=== PATIENT | male | born 2005 | race Caucasian/White ===

== ENCOUNTER 2023-05-25 10:53 | Inpatient (IN) ==
[2023-05-25] MEDS ORDERED: SODIUM CHLORIDE 0.9% 1000ML 1,000 ML IV STA (11:30)
[2023-05-25] MEDS ORDERED: IBUPROFEN 600 MG TAB PO STA (11:30)
--- NOTE | 2023-05-25 11:35 | Emergency Department Note ---
ED Provider Note History of Present Illness Chief Complaint: Flu Like Symptoms Stated Complaint: FEVER, HEADACHE, BODY ACHES - POSSIBLE COVID Time Seen by Provider: 05/25/23 11:10 Source: patient Mode of arrival: ambulatory Limitations: no limitations This patient is a 17-year-old male who presents to the emergency department for evaluation of a febrile illness which started 5 days ago. Patient reports that throughout the week, he has had intermittent high fevers up to 104 F, chills and fatigue. He has had days where he starts to feel better, but then symptoms returned. He is normally very active but has had to stay home and rest for several days due to his illness. He has had some intermittent headaches as well as some chest tightness 2 days ago, both of which have now resolved. He has had some minimal body aches. He denies any associated nausea/vomiting, abdominal pain, chest pain, shortness of breath, cough, sore throat, neck pain or stiffnes s. 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 He denies any recent known tick bites. He states that they were on vacation with his uncle last week who had a cold, but otherwise no sick contacts. He has been taking Tylenol and ibuprofen as well as taking cool showers for his fevers. Home Medications Medication Instructions Recorded Confirmed Type No Known Home Medications 05/25/23 05/25/23 History Allergies Allergy/AdvReac Type Severity Reaction Status Date / Time [id number] AdvReac Unknown Uncoded 06/17/04 10:52 Past Med/Surg History Medical History No significant past medical history Surgical History No significant past surgical history Social History Smoking Status: Never smoker Hx Alcohol Use: No Hx Substance Use: No Preferred Language: Sierra Leonean Communication Ability: Effective Lactation Nurse Required: No Beliefs That Will Affect Care: None Current Living Situation: Parent Feels Safe at Home: Yes Safety Concerns: Feels Safe At This Time Physical Exam Vital Signs Vital Signs - 24 hr 05/25/23 11:02 05/25/23 12:26 05/25/23 12:37 Temperature 38.2 C H 37.0 C Temperature Source Oral Oral Pulse Rate 115 H 85 Pulse Rate [Left Finger] 86 Respiratory Rate 16 18 Respiratory Effort / Characteristics Non-Labored Spontaneous Respiratory Depth Normal Respiratory Pattern Regular Blood Pressure [Left Arm] 109/68 Blood Pressure Mean [Left Arm] 81 Pulse Oximetry 97 98 Oxygen Delivery Method Room Air Room Air Sepsis Recent Fever Within 48 Hours Yes Sepsis New/Unexplained Change in Mental Status No Sepsis Action Taken by Nursing No Action Required 05/25/23 13:59 Temperature Temperature Source Pulse Rate Pulse Rate [Left Finger] 76 Respiratory Rate 21 Respiratory Effort / Characteristics Respiratory Depth Respiratory Pattern Blood Pressure [Left Arm] 108/64 Blood Pressure Mean [Left Arm] 78 Pulse Oximetry 98 Oxygen Delivery Method Sepsis Recent Fever Within 48 Hours Sepsis New/Unexplained Change in Mental Status Sepsis Action Taken by Nursing VITALS: Vitals are noted on the nurse's note and reviewed by myself. GENERAL: This is a 17-year-old male, in no acute distress, well-developed well- nourished. SKIN: The skin was without rashes. EARS: External auditory canals clear, tympanic membranes pearly tovar without erythema or effusion bilaterally. EYES: Pupils equal round and reactive to light and accommodation. NOSE: Patent, turbinates without inflammation or discharge. No sinus tenderness. MOUTH: Mucous membranes moist. Tonsils are not enlarged. Pharynx without erythema or exudate. NECK: Supple without nuchal rigidity. No lymphadenopathy. Full range of motion of the neck. No meningeal irritation. HEART: Regular rate and rhythm without murmurs gallops or rubs. LUNGS: Clear to auscultation bilaterally without wheezes, rales or rhonchi. No retractions or accessory muscle use. ABDOMEN: Positive bowel sounds x 4. Soft, nontender to palpation. NEURO: Patient was alert and oriented to person place and time. Course Administered Medications Doxycycline Hyclate 100 mg/ (Dextrose) 110 mls @ 50 mls/hr IV Q12H FLOYD Stop: 06/04/23 17:59 Last Admin: 05/25/23 18:10 Dose: 50 mls/hr Documented By: JORDAAN Ibuprofen (Ibuprofen 200 Mg Tab) 400 mg PO TID PRN PRN Reason: Fever or headache Stop: 06/24/23 17:14 Last Admin: 05/25/23 17:47 Dose: 400 mg Documented By: JORDANA Discontinued Medications Sodium Chloride (Nss 1000ml) 1,000 mls @ 999 mls/hr IV .Q1H1M STA Stop: 05/25/23 12:30 Last Infusion: 05/25/23 12:50 Dose: 0 mls/hr Documented By: Admin: 05/25/23 11:46 Dose: 999 mls/hr Documented By: JOSEPH Ceftriaxone Sodium 1,000 mg/ (Dextrose) 50 mls @ 100 mls/hr IV NOW STA Stop: 05/25/23 14:10 Last Infusion: 05/25/23 14:32 Dose: 0 mls/hr Documented By: Admin: 05/25/23 13:59 Dose: 100 mls/hr Documented By: JOSEPH Ibuprofen (Ibuprofen 600 Mg Tab) 600 mg PO NOW STA Stop: 05/25/23 11:31 Last Admin: 05/25/23 11:55 Dose: 600 mg Documented By: JOSEPH Medical Decision Making Differential Diagnosis Tickborne illness, COVID-19, viral syndrome, otitis, pharyngitis, pneumonia, influenza, meningitis, urinary tract infection, sepsis, bacteremia, as well as other pathologies. Home Medications was personally reviewed by me Laboratory Data Attestation: I reviewed the patient's lab results. 05/25/23 10:40 05/25/23 10:40 Lab Results 05/25/23 05/25/23 05/25/23 Range/Units 10:40 10:40 10:40 WBC 8.26 (4.8-10.8) K/ul RBC 5.08 (4.70-6.10) M/uL Hgb 14.5 (14.0-18.0) g/dl Hct 41.1 L (42.0-52.0) % MCV 80.9 (80.0-100.0) fL MCH 28.5 (25.0-34.0) pg MCHC 35.3 (32.0-36.0) g/dL RDW Std Deviation 35.9 L (36.4-46.3) fL RDW Coeff of Colten 12.1 (11.5-14.5) % Plt Count 161 (130-400) K/uL MPV 9.7 (9.4-12.4) fL Immature Gran % (Auto) 0.4 % Neut % (Auto) 77.3 % Lymph % (Auto) 6.2 % Gregg % (Auto) 16.0 % Eos % (Auto) 0.0 % Baso % (Auto) 0.1 % Neut # (Auto) 6.39 (1.40-6.50) K/uL Lymph # (Auto) 0.51 L (1.2-3.4) K/uL Gregg # (Auto) 1.32 H (0.11-0.59) K/uL Eos # (Auto) 0.00 (0-0.50) K/uL Baso # (Auto) 0.01 (0-0.2) K/uL Immature Gran # (Auto) 0.03 (0.01-0.20) K/uL Sodium 133 L (136-145) mmol/L Potassium 4.0 (3.5-5.1) mmol/L Chloride 102 (98-107) mmol/L Carbon Dioxide 24 (21-32) mmol/L Anion Gap 7 (3-11) BUN 13 (6-23) mg/dl Creatinine 1.11 (0.6-1.4) mg/dl Est Cr Clr Drug Dosing 116.6 ml/min Est GFR ( Amer) 111.0 ml/min Est GFR (Non-Af Amer) 95.8 ml/min BUN/Creatinine Ratio 11.7 (10-20) Glucose 112 H (70-99(Fasting)) mg/dl Calcium 9.2 (8.6-10.3) mg/dl Total Bilirubin 0.4 (0.2-1.0) mg/dl AST 16 (13-39) U/L ALT 27 (7-52) U/L Alkaline Phosphatase 74 (34-104) U/L Troponin I High Sens 41.0 H (0-20) pg/ml Total Protein 7.2 (6.0-8.3) gm/dl Albumin 4.3 (3.4-5.0) gm/dl Globulin 2.9 (2.5-4.0) gm/dl Albumin/Globulin Ratio 1.5 (0.9-2) Procalcitonin (0-0.5) ng/ml Urine Color Urine Appearance (Clear) Urine pH (4.5-7.5) Ur Specific Chama (1.000-1.030) Urine Protein (Negative) Urine Glucose (UA) (Negative) Urine Ketones (Negative) Urine Blood (Negative) Urine Nitrite (Negative) Urine Bilirubin (Negative) Urine Urobilinogen (Negative) Ur Leukocyte Esterase (Negative) Adenovirus (PCR) (NotDetected) Anaplasma Smear See Comment B. pertussis DNA (PCR) (NotDetected) B.parapertussis DNA PCR (NotDetected) Lyme Disease IgG Ab Positive A (Negative) Lyme Disease IgM Ab Negative (Negative) C. pneumoniae DNA (PCR) (NotDetected) Coronavirus OC43 (PCR) (NotDetected) Coronavirus HKU1 (PCR) (NotDetected) Coronavirus 229E (PCR) (NotDetected) SARS-CoV-2 (PCR) (NotDetected) Coronavirus NL63 (PCR) (NotDetected) Monoscreen (Negative) Human Metapneumovir PCR (NotDetected) Influenza Type A (PCR) (NotDetected) Influenza Type B (PCR) (NotDetected) M. pneumoniae (PCR) (NotDetected) Parainfluenza 1 (PCR) (NotDetected) Parainfluenza 2 (PCR) (NotDetected) Parainfluenza 3 (PCR) (NotDetected) Parainfluenza 4 (PCR) (NotDetected) RSV (PCR) (NotDetected) Entero/Rhino (PCR) (NotDetected) 05/25/23 05/25/23 05/25/23 Range/Units 10:40 10:40 10:52 WBC (4.8-10.8) K/ul RBC (4.70-6.10) M/uL Hgb (14.0-18.0) g/dl Hct (42.0-52.0) % MCV (80.0-100.0) fL MCH (25.0-34.0) pg MCHC (32.0-36.0) g/dL RDW Std Deviation (36.4-46.3) fL RDW Coeff of Colten (11.5-14.5) % Plt Count (130-400) K/uL MPV (9.4-12.4) fL Immature Gran % (Auto) % Neut % (Auto) % Lymph % (Auto) % Gregg % (Auto) % Eos % (Auto) % Baso % (Auto) % Neut # (Auto) (1.40-6.50) K/uL Lymph # (Auto) (1.2-3.4) K/uL Gregg # (Auto) (0.11-0.59) K/uL Eos # (Auto) (0-0.50) K/uL Baso # (Auto) (0-0.2) K/uL Immature Gran # (Auto) (0.01-0.20) K/uL Sodium (136-145) mmol/L Potassium (3.5-5.1) mmol/L Chloride (98-107) mmol/L Carbon Dioxide (21-32) mmol/L Anion Gap (3-11) BUN (6-23) mg/dl Creatinine (0.6-1.4) mg/dl Est Cr Clr Drug Dosing ml/min Est GFR ( Amer) ml/min Est GFR (Non-Af Amer) ml/min BUN/Creatinine Ratio (10-20) Glucose (70-99(Fasting)) mg/dl Calcium (8.6-10.3) mg/dl Total Bilirubin (0.2-1.0) mg/dl AST (13-39) U/L ALT (7-52) U/L Alkaline Phosphatase (34-104) U/L Troponin I High Sens (0-20) pg/ml Total Protein (6.0-8.3) gm/dl Albumin (3.4-5.0) gm/dl Globulin (2.5-4.0) gm/dl Albumin/Globulin Ratio (0.9-2) Procalcitonin 0.22 (0-0.5) ng/ml Urine Color Urine Appearance (Clear) Urine pH (4.5-7.5) Ur Specific Chama (1.000-1.030) Urine Protein (Negative) Urine Glucose (UA) (Negative) Urine Ketones (Negative) Urine Blood (Negative) Urine Nitrite (Negative) Urine Bilirubin (Negative) Urine Urobilinogen (Negative) Ur Leukocyte Esterase (Negative) Adenovirus (PCR) Not Detected (NotDetected) Anaplasma Smear B. pertussis DNA (PCR) Not Detected (NotDetected) B.parapertussis DNA PCR Not Detected (NotDetected) Lyme Disease IgG Ab (Negative) Lyme Disease IgM Ab (Negative) C. pneumoniae DNA (PCR) Not Detected (NotDetected) Coronavirus OC43 (PCR) Not Detected (NotDetected) Coronavirus HKU1 (PCR) Not Detected (NotDetected) Coronavirus 229E (PCR) Not Detected (NotDetected) SARS-CoV-2 (PCR) Not Detected (NotDetected) Coronavirus NL63 (PCR) Not Detected (NotDetected) Monoscreen Negative (Negative) Human Metapneumovir PCR Not Detected (NotDetected) Influenza Type A (PCR) Not Detected (NotDetected) Influenza Type B (PCR) Not Detected (NotDetected) M. pneumoniae (PCR) Not Detected (NotDetected) Parainfluenza 1 (PCR) Not Detected (NotDetected) Parainfluenza 2 (PCR) Not Detected (NotDetected) Parainfluenza 3 (PCR) Not Detected (NotDetected) Parainfluenza 4 (PCR) Not Detected (NotDetected) RSV (PCR) Not Detected (NotDetected) Entero/Rhino (PCR) Not Detected (NotDetected) 05/25/23 Range/Units 13:47 WBC (4.8-10.8) K/ul RBC (4.70-6.10) M/uL Hgb (14.0-18.0) g/dl Hct (42.0-52.0) % MCV (80.0-100.0) fL MCH (25.0-34.0) pg MCHC (32.0-36.0) g/dL RDW Std Deviation (36.4-46.3) fL RDW Coeff of Colten (11.5-14.5) % Plt Count (130-400) K/uL MPV (9.4-12.4) fL Immature Gran % (Auto) % Neut % (Auto) % Lymph % (Auto) % Gregg % (Auto) % Eos % (Auto) % Baso % (Auto) % Neut # (Auto) (1.40-6.50) K/uL Lymph # (Auto) (1.2-3.4) K/uL Gregg # (Auto) (0.11-0.59) K/uL Eos # (Auto) (0-0.50) K/uL Baso # (Auto) (0-0.2) K/uL Immature Gran # (Auto) (0.01-0.20) K/uL Sodium (136-145) mmol/L Potassium (3.5-5.1) mmol/L Chloride (98-107) mmol/L Carbon Dioxide (21-32) mmol/L Anion Gap (3-11) BUN (6-23) mg/dl Creatinine (0.6-1.4) mg/dl Est Cr Clr Drug Dosing ml/min Est GFR ( Amer) ml/min Est GFR (Non-Af Amer) ml/min BUN/Creatinine Ratio (10-20) Glucose (70-99(Fasting)) mg/dl Calcium (8.6-10.3) mg/dl Total Bilirubin (0.2-1.0) mg/dl AST (13-39) U/L ALT (7-52) U/L Alkaline Phosphatase (34-104) U/L Troponin I High Sens (0-20) pg/ml Total Protein (6.0-8.3) gm/dl Albumin (3.4-5.0) gm/dl Globulin (2.5-4.0) gm/dl Albumin/Globulin Ratio (0.9-2) Procalcitonin (0-0.5) ng/ml Urine Color Yellow Urine Appearance Clear (Clear) Urine pH 7.5 (4.5-7.5) Ur Specific Chama 1.010 (1.000-1.030) Urine Protein Negative (Negative) Urine Glucose (UA) Negative (Negative) Urine Ketones Negative (Negative) Urine Blood Negative (Negative) Urine Nitrite Negative (Negative) Urine Bilirubin Negative (Negative) Urine Urobilinogen Negative (Negative) Ur Leukocyte Esterase Negative (Negative) Adenovirus (PCR) (NotDetected) Anaplasma Smear B. pertussis DNA (PCR) (NotDetected) B.parapertussis DNA PCR (NotDetected) Lyme Disease IgG Ab (Negative) Lyme Disease IgM Ab (Negative) C. pneumoniae DNA (PCR) (NotDetected) Coronavirus OC43 (PCR) (NotDetected) Coronavirus HKU1 (PCR) (NotDetected) Coronavirus 229E (PCR) (NotDetected) SARS-CoV-2 (PCR) (NotDetected) Coronavirus NL63 (PCR) (NotDetected) Monoscreen (Negative) Human Metapneumovir PCR (NotDetected) Influenza Type A (PCR) (NotDetected) Influenza Type B (PCR) (NotDetected) M. pneumoniae (PCR) (NotDetected) Parainfluenza 1 (PCR) (NotDetected) Parainfluenza 2 (PCR) (NotDetected) Parainfluenza 3 (PCR) (NotDetected) Parainfluenza 4 (PCR) (NotDetected) RSV (PCR) (NotDetected) Entero/Rhino (PCR) (NotDetected) Imaging Data Attestation: I personally reviewed and interpreted this imaging study as follows: Radiologist's Impression: Chest X-Ray 05/25/23 11:30 XR chest 1V portable HISTORY: 17 years-old Male Fever acute fever COMPARISON: 04/14/2013 TECHNIQUE: AP view of the chest FINDINGS: Cardiomediastinal and hilar silhouettes are within normal limits. No pneumoth orax, pleural effusion, airspace consolidation or pulmonary edema. Bones appear grossly intact. IMPRESSION: Normal exam. ACT 112: Negative or not required by law. The above report was generated using voice recognition software. It may contain grammatical, syntax or spelling errors. Electronically signed by: Javier Jensen M.D. 05/25/2023 12:10 PM ECG Data Attestation: I personally reviewed and interpreted this ECG as follows: Indication: + chest pain Rate (beats per minute): 94 Rhythm: + normal sinus ECG Intervals/blocks: + Normal QRS ECG [place]: + Right axis deviation ECG ST segments: + Nonspecific ST abnormalities Comparison ECG Date: no prior available MDM Narrative Continuous compliance monitor: Order was placed for continuous compliance monitor. Patient was placed on the compliance monitor. Patient was noted to be in sinus tachycardia at an initial rate of 110 bpm. The patient is a 17-year-old male who presents today complaining of intermittent fevers and chills over the past week. Patient has also had some chest tightness over the past few days. Labs revealed no leukocytosis or thrombocytopenia. There were no concerning electrolyte abnormalities. LFTs within normal limits. Urinalysis was not suggestive of infection. [facility] respiratory panel was found to be negative. Anaplasmosis and babesiosis smears were negative. Patient's Lyme IgG testing was found to be positive. His troponin was elevated at 41. EKG shows some nonspecific ST changes without evidence of ischemia or heart block. Given the elevated troponin there is concern for Lyme carditis. Patient was treated with IV Rocephin, fluids and ibuprofen. [facility] the patient for further care. Impression Lyme disease, Elevated troponin Discharge Plan Visit Data Chief Complaint: Flu Like Symptoms Stated Complaint: FEVER, HEADACHE, BODY ACHES - POSSIBLE COVID ED Provider: Shoaib Meyer ED Midlevel Provider: Alena Noonan Discharge Problem: Lyme disease, Elevated troponin Patient Disposition: Admitted As Inpatient Discharge Instructions Interventions: ED Discharge Assessment Last Done: 05/25/23 16:47
[2023-05-25 12:06] LABS: Basophils # (auto) 0.01 K/uL (0-0.2); Basophils % (auto) 0.1 %; Hematocrit (blood only) 41.1 % (42.0-52.0); Hemoglobin 14.5 g/dl (14.0-18.0); Immature Granulocytes # (auto) 0.03 K/uL (0.01-0.20); Immature Granulocytes % (auto) 0.4 %; Lymphocytes # (auto) 0.51 K/uL (1.2-3.4); Lymphocytes % (auto) 6.2 %; Mean Corpuscular Hemoglobin 28.5 pg (25.0-34.0); Mean Corpuscular Hgb Conc 35.3 g/dL (32.0-36.0); Mean Corpuscular Volume 80.9 fL (80.0-100.0); Mean Platelet Volume 9.7 fL (9.4-12.4); Monocytes # (auto) 1.32 K/uL (0.11-0.59); Neutrophils # (auto) 6.39 K/uL (1.40-6.50); Neutrophils % (auto) 77.3 %; Platelet Count 161 K/uL (130-400); RDW Coefficient of Variation 12.1 % (11.5-14.5); RDW Standard Deviation 35.9 fL (36.4-46.3); Red Blood Count 5.08 M/uL (4.70-6.10); White Blood Count 8.26 K/ul (4.8-10.8)
--- NOTE | 2023-05-25 12:11 | XRay Report ---
XR chest 1V portable HISTORY: 17 years-old Male Fever acute fever COMPARISON: 04/14/2013 TECHNIQUE: AP view of the chest FINDINGS: Cardiomediastinal and hilar silhouettes are within normal limits. No pneumothorax, pleural effusion, airspace consolidation or pulmonary edema. Bones appear grossly intact. IMPRESSION: Normal exam. ACT 112: Negative or not required by law. The above report was generated using voice recognition software. It may contain grammatical, syntax o r spelling errors. Electronically signed by: Javier Jensen M.D. 05/25/2023 12:10 PM
[2023-05-25 12:24] LABS: Albumin Globulin Ratio 1.5 (0.9-2); Albumin Level 4.3 gm/dl (3.4-5.0); BUN Creatinine Ratio 11.7 (10-20); Bilirubin,Total 0.4 mg/dl (0.2-1.0); Calcium 9.2 mg/dl (8.6-10.3); Creatinine Clr Calc Pharmacy 116.6 ml/min; Est GFR (Non-African American) 95.8 ml/min; Globulin 2.9 gm/dl (2.5-4.0); Total Protein 7.2 gm/dl (6.0-8.3)
[2023-05-25 12:59] LABS: Lyme Ab IgM w/WB Rflx Negative (Negative)
[2023-05-25 13:02] LABS: Adenovirus PCR Not Detected (NotDetected); Bordetella parapertussis PCR Not Detected (NotDetected); Bordetella pertussis PCR Not Detected (NotDetected); Chlamydia pneumoniae PCR Not Detected (NotDetected); Coronavirus 229E PCR Not Detected (NotDetected); Coronavirus CoV-2 (COVID19)PCR Not Detected (NotDetected); Coronavirus HKU1 PCR Not Detected (NotDetected); Coronavirus NL63 PCR Not Detected (NotDetected); Coronavirus OC43PCR Not Detected (NotDetected); Human Metapneumovirus PCR Not Detected (NotDetected); Influenza A PCR Not Detected (NotDetected); Influenza B PCR Not Detected (NotDetected); Mycoplasma pneumoniae PCR Not Detected (NotDetected); Parainfluenza Virus 1 PCR Not Detected (NotDetected); Parainfluenza Virus 2 PCR Not Detected (NotDetected); Parainfluenza Virus 3 PCR Not Detected (NotDetected); Parainfluenza Virus 4 PCR Not Detected (NotDetected); Respiratory Syncytial VirusPCR Not Detected (NotDetected); Rhinovirus/Enterovirus PCR Not Detected (NotDetected)
[2023-05-25 13:28] LABS: Lyme Ab IgG w/WB Rflx Positive (Negative)
[2023-05-25] MEDS ORDERED: cefTRIAXone SODIUM 1,000 MG in DEXTROSE 5% AD-VAN 50 ML IV STA (13:41)
[2023-05-25 14:04] LABS: Appearance Urine Clear (Clear); Bilirubin Urine Negative (Negative); Blood Urine Negative (Negative); Color Urine Yellow; Glucose Urine UA Negative (Negative); Ketones Urine Negative (Negative); Leukocyte Esterase Urine Negative (Negative); Nitrite Urine Negative (Negative); Protein Urine Negative (Negative); Urobilinogen Urine Negative (Negative); pH Urine 7.5 (4.5-7.5)
--- NOTE | 2023-05-25 14:51 | History & Physical Report ---
Date of Service May 25, 2023 Assessment & Plan (1) Lyme carditis: Plan: Lyme disease,? Lyme carditis AL 152, QTc 417, normal sinus rhythm, nonspecific ST wave change Patient with chest pain [employer] which is resolved at time of bedside evaluation High sensitive troponin 41 Troponin trended, Echo pending AL is not prolonged greater than 300 ms, will transition from Rocephin to doxycycline 100 mg twice daily treatment Pro-Mason is normal No leukocytosis No history of hocum, sudden cardiac . FHX of [place] in fathers side of family in 40s/50s Systolic Murmur - New to pt - ?flow murmur - Echo pending as above DVT PPx: SCDs Diet: Regular CODE: FUll Dispo: Med Tele for chest pain History of Present Illness Primary Care Provider: Vasu Fowler DO Gilberto is a 17-year-old male who presented with fever of 5 days of up to 104, chills, body aches, and fatigue. Symptoms initially improved slightly and then worsened. He has had associated chest tightness without shortness of breath/diaphoresis. He takes no home medications and has no known medication allergies. On ER evaluation he does not have leukocytosis but is found to be IgG positive. He has never been treated for Lyme disease before, does work on golf courses. High-sensitivity troponin is elevated at 41, EKG does not show evidence of heart block. Due to his troponin elevation, chest pain, and suspected potential cardiac Lyme patient was recommended for inpatient observation, echo and troponin trend. Anaplasma testing pending. AL is not prolonged greater than 300 ms. Will defer additional Rocephin and start on doxycycline twice daily. Gilberto seen in the ER with his mom. 'On and off feel like crap all week intermittently.' No rashes. +fevers, +chills. 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 No bullseye rash. Chest pain occured morning, chest was tight. Went to bed and woke up and chest tightness was gone after waking up. No CP since that time. [place] like he had to breath more, maybe a little shortness of breath at the time.NO other medical hx, no chronic medications. Uses ibuprofen/APAP every 4 hours in the last week. No other OTC meds. No leg swelling. No joint swelling. No joint pain on admit. No muscle aches at admit, but had these earlier in the week +headache. No numbness, tingling. No weakness. PGM NH at age 50s. Uncle age 40 from NH. Father with NH in 50s. No history of SCD/ w/ sports. Medical History: Reviewed Medications: Reviewed Surgical History: Reviewed Family history: Reviewed Allergies: Reviewed Social History: No tobacco use, no etoh use, no vaping. Code Status: Full Allergies Allergy/AdvReac Type Severity Reaction Status Date / Time [id number] AdvReac Unknown Uncoded 06/17/04 10:52 Home Medications Medication Instructions Recorded Confirmed Type No Known Home Medications 05/25/23 05/25/23 History Past Med/Surg History Medical History No significant past medical history Surgical History No significant past surgical history Social History Smoking Status: Never smoker Feels Safe at Home: Yes Review of Systems Review of Systems: All systems reviewed & are unremarkable except as noted in HPI & below Physical Exam Physical Exam: General: A&Ox3. NAD. Cooperative. HEENT: Atraumatic, normocephalic. TIMOTHY. Vision/hearing. Pulm: CTAB A&P. -wheezes, -rales, -rhonchi. Symmetrical chest rise. No increased work of breathing. No respiratory distress. Cardiac: RRR, +sm. Radial pulses intact and symmetrical. Abdominal: Nontender, nondistended, soft. BS present. Ext: Warm, dry. Moves all extremities equally. Sensation to soft touch intact in arms and legs without asymmetry, Results & Data Results & Data Vital Signs (Past 12 Hours) Vital Signs Temp Pulse Pulse Resp BP Pulse Ox O2 Del Method 05/25/23 13:59 76 21 108/64 98 05/25/23 12:37 85 05/25/23 12:26 37.0 C 86 18 109/68 98 Room Air 05/25/23 11:02 38.2 C H 115 H 16 97 Room Air PG Care Time/CCT Total # of Minutes Spent Total Time Spent with Patient: Total time spent is greater than 50% in coordination of care (as documented) at patient's floor/unit and/or counseling patient: Coding Level of Care Code 56017 INT INP/OBS CARE Diagnoses Lyme carditis A69.29
[2023-05-25] MEDS ORDERED: ACETAMINOPHEN 325 MG TAB PO PRN (17:01)
[2023-05-25] MEDS ORDERED: IBUPROFEN 200 MG TAB PO PRN (17:15)
[2023-05-25] MEDS: DOXYCYCLINE HYCLATE 100 MG in DEXTROSE 5% 100 ML IV SCH (18:10)
[2023-05-25] MEDS ORDERED: MELATONIN 3 MG TAB PO PRN (18:16)
[2023-05-26] MEDS: DOXYCYCLINE HYCLATE 100 MG in DEXTROSE 5% 100 ML IV SCH (05:40)
--- NOTE | 2023-05-26 06:47 | Hospitalist Progress Note ---
Date of Service May 26, 2023 Assessment & Plan (1) Lyme carditis: Plan: Lyme disease,? Lyme carditis MI 152, QTc 417, normal sinus rhythm, nonspecific ST wave change Patient with chest pain [employer] which is resolved at time of bedside evaluation High sensitive troponin 41 Troponin trended, Echo pending MI is not prolonged greater than 300 ms, will transition from Rocephin to doxycycline 100 mg twice daily treatment Pro-Mason is normal No leukocytosis No history of hocum, sudden cardiac . FHX of [place] in fathers side of family in 40s/50s Systolic Murmur - New to pt - ?flow murmur - Echo pending as above DVT PPx: SCDs Diet: Regular CODE: FUll Dispo: Med MovieLine for chest pain Admission and Anticipated Discharge Date Admission Date: May 25, 2023 Results & Data Results & Data Vital Signs (Past 12 Hours) Vital Signs Temp Pulse Pulse Resp BP Pulse Ox O2 Del Method 05/26/23 02:55 36.8 C 70 18 116/73 100 Room Air 05/26/23 00:35 59 L 05/25/23 23:22 36.9 C 69 20 112/73 97 Room Air 05/25/23 20:37 37.5 C 05/25/23 20:03 39.1 C H 105 H 18 121/76 97 Room Air
--- NOTE | 2023-05-26 06:58 | Electrocardiogram Report ---
Test Reason : Blood Pressure : / mmHG Vent. Rate : 094 BPM Atrial Rate : 094 BPM P-R Int : 152 ms QRS Dur : 094 ms QT Int : 334 ms P-R-T Axes : 061 092 026 degrees QTc Int : 417 ms Normal sinus rhythm Rightward axis Nonspecific T wave abnormality Abnormal ECG No previous ECGs available Confirmed by Kwesi Hernandez ([id number]) on 05/26/2023 6:58:20 AM Referred By: Confirmed By:Jefferson Hernandez
[2023-05-26 07:10] LABS: Basophils # (auto) 0.02 K/uL (0-0.2); Basophils % (auto) 0.2 %; Eosinophils # (auto) 0.01 K/uL (0-0.50); Eosinophils % (auto) 0.1 %; Hematocrit (blood only) 40.6 % (42.0-52.0); Hemoglobin 14.1 g/dl (14.0-18.0); Immature Granulocytes # (auto) 0.03 K/uL (0.01-0.20); Immature Granulocytes % (auto) 0.3 %; Lymphocytes # (auto) 1.23 K/uL (1.2-3.4); Lymphocytes % (auto) 12.5 %; Mean Corpuscular Hemoglobin 28.3 pg (25.0-34.0); Mean Corpuscular Hgb Conc 34.7 g/dL (32.0-36.0); Mean Corpuscular Volume 81.5 fL (80.0-100.0); Mean Platelet Volume 9.4 fL (9.4-12.4); Monocytes # (auto) 1.83 K/uL (0.11-0.59); Monocytes % (auto) 18.6 %; Neutrophils # (auto) 6.72 K/uL (1.40-6.50); Neutrophils % (auto) 68.3 %; Platelet Count 170 K/uL (130-400); RDW Coefficient of Variation 12.5 % (11.5-14.5); RDW Standard Deviation 37.2 fL (36.4-46.3); Red Blood Count 4.98 M/uL (4.70-6.10); White Blood Count 9.84 K/ul (4.8-10.8)
[2023-05-26 07:29] LABS: BUN Creatinine Ratio 12.6 (10-20); Calcium 8.7 mg/dl (8.6-10.3); Est GFR (African American) 121.5 ml/min; Est GFR (Non-African American) 104.8 ml/min; Potassium 4.5 mmol/L (3.5-5.1)
[2023-05-26 07:37] LABS: Troponin I High Sensitivity 22.8 pg/ml (0-20)
--- NOTE | 2023-05-26 10:22 | XCELERA ---
[id number] \\[id number]
--- NOTE | 2023-05-26 12:41 | Discharge Summary ---
Date of Service May 26, 2023 Admission HPI Per Admitting Provider Gilberto is a 17-year-old male who presented with fever of 5 days of up to 104, chills, body aches, and fatigue. Symptoms initially improved slightly and then worsened. He has had associated chest tightness without shortness of breath/diaphoresis. He takes no home medications and has no known medication allergies. On ER evaluation he does not have leukocytosis but is found to be IgG positive. He has never been treated for Lyme disease before, does work on golf courses. High-sensitivity troponin is elevated at 41, EKG does not show evidence of heart block. Due to his troponin elevation, chest pain, and suspected potential cardiac Lyme patient was recommended for inpatient observation, echo and troponin trend. Anaplasma testing pending. NY is not prolonged greater than 300 ms. Will defer additional Rocephin and start on doxycycline twice daily. Gilberto seen in the ER with his mom. 'On and off feel like crap all week intermittently.' No rashes. +fevers, +chills. 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 No bullseye rash. Chest pain occured morning, chest was tight. Went to bed and woke up and chest tightness was gone after waking up. No CP since that time. [place] like he had to breath more, maybe a little shortness of breath at the time.NO other medical hx, no chronic medications. Uses ibuprofen/APAP every 4 hours in the last week. No other OTC meds. No leg swelling. No joint swelling. No joint pain on admit. No muscle aches at admit, but had these earlier in the week +headache. No numbness, tingling. No weakness. PGM CT at age 50s. Uncle age [address] Father with CT in 50s. No history of SCD/ w/ sports. Medical History: Reviewed Medications: Reviewed Surgical History: Reviewed Family history: Reviewed Allergies: Reviewed Social History: No tobacco use, no etoh use, no vaping. Code Status: Full Principal Diagnosis Lyme Carditis Discharge Exam Constitutional: well-appearing, no acute distress HEENT: NCAT, no conjunctival injection CV: regular rhythm, no murmur appreciated, extremities well-perfused, no LE edema Resp: CTABL, no wheezes/rales/rhonchi appreciated, no increased work of breathing MSK: no gross deformities appreciated Skin: warm, dry, no rash appreciated Neuro: alert, oriented, no focal neurologic deficit appreciated Discharge Data Allergies Allergy/AdvReac Type Severity Reaction Status Date / Time [id number] AdvReac Unknown Uncoded 06/17/04 10:52 Consultations 05/25/23 15:48 ED Decision to Admit Stat Hospital Course (1) Lyme disease: Lyme disease, Lyme carditis NY 152, QTc 417, normal sinus rhythm, nonspecific ST wave change Patient with chest pain [employer] which is resolved at time of bedside evaluation High sensitive troponin 41 Troponin trended, Echo normal [place] is not prolonged greater than 300 ms, s/p Rocephin in ED was transitioned to doxycycline 100 mg twice daily treatment Pro-[place] is normal No leukocytosis No history of hocum, sudden cardiac . FHX of CT in fathers side of family in 40s/50s - Plan to d/c with 21 day coarse of doxycycline - F/u tick borne studies Systolic Murmur - New to pt, noted on admission - TTE normal (2) Elevated troponin: (3) Lyme carditis: Total Time Total Time Spent Total Time Spent (In Minutes): <30 Discharge Plan Discharge Items Patient Disposition: Home - Self-Care Reason For Visit: ?LYME CARDITIS Discharge Diagnosis: Lyme Carditis Activity: Per Instructions section Non-emergency contact: Primary Care Provider Call non-emergency contact if: you have any medication questions and your symptoms worsen Follow-up/Referrals: Vasu Fowler, [Primary Care Provider] - (PLEASE CALL YOUR PRIMARY CARE PROVIDER TO SCHEDULE A DISCHARGE FOLLOW-UP APPOINTMENT WITHIN 7-10 DAYS.) Diet: Regular Addtl Attending Provider Instructions: We think that your symptoms were likely caused by lyme disease. We want you to continue to take doxycycline for a total of 21 days. You should take it twice a day. Doxycycline can make you sensitive to the sun. While you are taking it you should avoid the sun and wear sunscreen. We would like you to follow up with your primary care doctor in about a week. They should reach out to you to get an appointment scheduled. If you do not hear from their office in the next couple days please call to schedule an appointment. Pending Studies at Discharge: No Stand-Alone Forms: My [facility], Work/School Release Medications and DC Order Prescriptions: New doxycycline hyclate 100 mg capsule 100 mg PO BID 20 Days Qty: 40 0RF Discharge Orders: Discharge Order (Routine); Ordered 05/26/23 Ordered By: Ines Maravilla/Other Patient Handouts: Tick Bites, ED Lyme Disease Admission Data Admit Date/Time: 05/25/23 14:42 Attending Provider: Héctor Jacobson Admit Provider: Deric Soliman Primary Care Provider: Vasu Fowler Other Providers: Deric Soliman Other Interventions: Discharge Summary Assessment (RN) Last Done: 05/26/23 12:50 Supervising Physician Co-Signing Physician Notes I personally examined the patient and verified all quinn points of history and e xam, discussed case, and agree with decision making with Dr Nassar feeling better and would very much like to go home. No chest pain. Reviewed echocardiogram, looked at cardiac rehabilitation specialist no ectopy no arrhythmiasall sinus, even his sinus tachycardia was only about a max of 110 bpm. Vitals noted, in general he is awake and alert pleasant no distress. HEENT normocephalic atraumatic mucous membranes moist. Breathing unlabored no accessory muscle use good effort. Skin shows no rashes no pallor or icterus. Neuro without focal deficits. Echo, troponins, EKG, cardiac monitoring, labs all noted. Myocarditis appearing to be associated with Lymedoxycycline presumably for 21 daysalthough if he is doing well, possibly can treat for as little as 14. Discussed sun sensitivity and esophagitis risk. Discussed would refrain from any significant cardiovascular exertion until this has resolved. Outpatient follow-up with PCP in the next week or so. Safe/stable for home, otherwise as above. Resident Activity Tracking Resident Involvement: Resident Care Provided Care Provided: Adult Hospital Medicine
--- NOTE | 2023-05-26 14:16 | Billing Data ---
Date of Service May 26, 2023 Coding Level of Care Code 76677 IN/OBS DISCH 30 MIN/LESS
[2023-05-29 07:47] LABS: 18KDIGG Band REACTIVE; 23KDIGG Band REACTIVE; 23KDIGM Band REACTIVE; 28KDIGG Band REACTIVE; 30KDIGG Band REACTIVE; 39KDIGG Band REACTIVE; 39KDIGM Band REACTIVE; 41KDIGG Band REACTIVE; 41KDIGM Band NON-REACTIVE; 45KDIGG Band NON-REACTIVE; 58KDIGG Band REACTIVE; 66KDIGG Band NON-REACTIVE; 93KDIGG Band REACTIVE; Lyme Antibodies, WB IgG POSITIVE (NEGATIVE); Lyme Antibodies, WB IgM POSITIVE (NEGATIVE)
== END 2023-05-26 13:13 | disposition home or self-care (01) | DRG 869 ==
LOC: ED 10:53 → SUATTDRO 14:42 → 2N 14:42